=== PATIENT | female | born 1975 | race Hispanic/Latino ===

== ENCOUNTER → 2018-08-19 | Outpatient (CLI) | payer OTHER | END | disposition home or self-care (01) | LOC: OIH 14:43 | PROVIDERS: ATTEND Family Medicine | DX: S39.92XS Unspecified injury of lower back, sequela (principal); X58.XXXS Exposure to other specified factors, sequela | CPT/HCPCS: 72100 ==

== ENCOUNTER 2018-11-26 10:22 | Emergency (ER) | payer OTHER ==
[2018-11-26 12:16] LABS: APPEARANCE,URINE Clear (CLEAR); BILIRUBIN,URINE Negative (NEGATIVE); COLOR,URINE Yellow (YELLOW); GLUCOSE, URINE (UA) Negative (NEGATIVE); KETONES,URINE Negative (NEGATIVE); LEUKOCYTE ESTERASE ,URINE Moderate (NEGATIVE); NITRATE,URINE Positive (NEGATIVE); OCCULT BLOOD,URINE Negative (NEGATIVE); PROTEIN,URINE Negative (NEGATIVE); UROBILINOGEN,URINE 0.2 mg/dL (0.2-1.0)
[2018-11-26 12:33] LABS: HCG,QUAL RESULT NEGATIVE (NEGATIVE)
[2018-11-26 12:55] LABS: BACTERIA,URINE Many /HPF (None Seen); RBC,URINE 0-1 /HPF (0-1); SQUAMOUS EPITHELIAL CELL,UR Rare /HPF (0-2); WBC,URINE 0-1 /HPF (0-1)
[2018-11-26] MEDS ORDERED: DEXAMETHASONE SOD PHOSPHATE 10MG/ML 1ML VIAL ONE (13:04)
[2018-11-26] MEDS ORDERED: KETOROLAC TROMETHAMINE 30MG/ML ONE (13:04)
== END 2018-11-26 13:27 | disposition home or self-care (01) ==
LOC: EDH 10:22
DX: M54.5 Low back pain (principal); G89.29 Other chronic pain; M70.21 Olecranon bursitis, right elbow; N30.90 Cystitis, unspecified without hematuria
CPT/HCPCS: 73080; 81001; 81025; 96372 ×2; 99284; J1100; J1885

== ENCOUNTER 2019-08-06 19:52 | Emergency (ER) | payer SELFPAY | END 2019-08-06 20:23 | disposition home or self-care (01) | LOC: EDH 19:52 | DX: M54.16 Radiculopathy, lumbar region (principal); Z72.0 Tobacco use | CPT/HCPCS: 99281 ==